=== PATIENT | female | born 1965 | race Native Hawaiian/Other Pacific Islander ===

== ENCOUNTER 2019-03-07 11:14 | Emergency (ER) | payer OTHER, MEDICAID ==
[~2019-03-07] VITALS: Ht 162.6 cm; Wt 114.8 kg
[2019-03-07 11:25] VITALS: BP 144/100
--- NOTE | 2019-03-07 11:45 | NUR ---
53 Y/O F PRESENTS TO ER FOR SHORTNESS OF BREATH X 1 WEEK. PER PT SHE JUST MOVED HERE AND DOES NOT HAVE A NEW PCP. PT RAN OUT OF ALBUTEROL 90MCG PRN INHALER. PT TAKING FLOVENT HFA 44MCG BID, WITHOUT ANY RELIEF. RESPIRATIONS ARE EVEN AND UNLABORED. O2 SATURATION 92-94% ON RA. PT PLACED ON 1L NC FOR COMFORT MEASURES. WHEEZING HEARD THROUGHOUT. PT HAS PRODUCTIVE COUGH WITH YELLOW PHLEGM. PT ALSO HAS HEADACHE 8/10 PAIN. PT ALSO HAS BILATERAL EDEMA TO TO ANKLES X 6 MONTHS. PT TAKING LASIX. PT PLACED IN HIGH FOWLERS POSITION, BED IN LOWEST POSITION, SIDE RAIL UP X1. ERMD MADE AWARE OF PT STATUS. ALLERGIES: NKA MED HX: ASTHMA, DM, HTN
--- NOTE | 2019-03-07 12:39 | NUR ---
Patient being evaluated by physician at bedside.
[2019-03-07] MEDS ORDERED: ALBUTEROL SULFATE/IPRATROPIU 3 ML SOL IH ONE (12:55)
[2019-03-07] MEDS ORDERED: predniSONE 20 MG TAB PO ONE (12:55)
--- NOTE | 2019-03-07 12:59 | NUR ---
XRAY AT BEDSIDE
--- NOTE | 2019-03-07 13:10 | NUR ---
RT AT BEDSIDE
[2019-03-07 13:38] LABS: BASOPHILS % (AUTO) 0.6 % (0.0-2.0); EOSINOPHILS # (AUTO) 0.2 K/uL (0-0.4); EOSINOPHILS % (AUTO) 5.1 % (0.0-4.0); HEMATOCRIT 43.9 % (36-48); HEMOGLOBIN 14.4 g/dL (12.0-16.0); LYMPHOCYTES # (AUTO) 1.6 K/uL (2.5-16.5); LYMPHOCYTES % (AUTO) 32.6 % (20.5-51.1); MEAN CORPUSCULAR HEMOGLOBIN 30 pg (27-31); MEAN CORPUSCULAR HGB CONC 33 g/dL (33-37); MEAN CORPUSCULAR VOLUME 92.3 fL (80-94); MONOCYTES # (AUTO) 0.3 K/uL (0.8-1.0); MONOCYTES % (AUTO) 5.9 % (1.7-9.3); NEUTROPHILS # (AUTO) 2.7 K/uL (1.8-7.7); NEUTROPHILS % (AUTO) 55.8 % (42.2-75.2); PLATELET COUNT (AUTO) 257 K/uL (140-450); RED BLOOD CELL COUNT(AUTO) 4.75 MIL/uL (4.20-5.40); RED CELL DISTRIBUTION WIDTH 13.7 % (11.6-13.7); WHITE BLOOD COUNT (AUTO) 4.8 K/uL (4.8-10.8)
[2019-03-07 13:51] LABS: ANION GAP 12.1 (8-16); CARBON DIOXIDE 28.9 mmol/L (21-32); CREATININE 0.7 mg/dL (0.6-1.3)
--- NOTE | 2019-03-07 14:11 | NUR ---
PT RESTING IN BED COMFORTABLY WITH EYES CLOSED, EASILY ARROUSABLE. VSS. WILL CONTINUE TO MONITOR.
--- NOTE | 2019-03-07 15:20 | NUR ---
Patient discharged with v/s stable. Written and verbal after care instructions given and explained. Pt encouraged to take the prednisone for the next few days. Pt encouraged to follow up with a new primary care provider within the [place] area. Patient alert, oriented and verbalized understanding of instructions. Ambulatory with steady gait. All questions addressed prior to discharge. ID band removed. Patient advised to follow up with PMD. Rx of albuterol 90 mcg, prednisone 20mg and flovent 110mcg was given. Patient educated on indication of medication including possible reaction and side effects. Opportunity to ask questions provided and answered.
[2019-03-07 15:24] VITALS: BP 169/112
== END 2019-03-07 15:20 | disposition home or self-care (01) ==
LOC: MED 11:14
DX: J45.901 Unspecified asthma with (acute) exacerbation (principal); E11.8 Type 2 diabetes mellitus with unspecified complications
CPT/HCPCS: 36415; 71045; 80048; 82948; 84484; 85025; 93005; 94640; 99284; J7512; J7620; Q0092

== ENCOUNTER 2019-06-03 08:29 | Emergency (ER) | payer OTHER, MEDICAID ==
[~2019-06-03] VITALS: Ht 162.6 cm; Wt 111.6 kg
[2019-06-03 08:45] VITALS: BP 204/132
--- NOTE | 2019-06-03 08:46 | NUR ---
Patient ambulated to bed 12. RN evaluating patient at bedside.
--- NOTE | 2019-06-03 08:54 | NUR ---
54 Y/O M C/C H/A SINCE THIS AM, PAIN 10/. HAS NOT TAKEN ANY RX AT HOME FOR PAIN. PER PT DX WITH HTN BUT DOES NOT HAVE PRESCRIBED RX FOR HTN. PT NKA. HX HTN,DM,ASTHMA. RX LASIX,METFORMIN,ALBUTEROL. NO N/V/D. LUNG SOUNDS WHEEZES BILATERAL. SIDE RAIL X1.
--- NOTE | 2019-06-03 09:00 | NUR ---
Patient taken to CT scan via gurney by [employer].
[2019-06-03] MEDS ORDERED: PRON INH (09:01)
[2019-06-03] MEDS ORDERED: METF500T PO (09:01)
--- NOTE | 2019-06-03 09:01 | NUR ---
NEURO ASSESSMENT WDL.
--- NOTE | 2019-06-03 09:09 | NUR ---
ua sent to lab
--- NOTE | 2019-06-03 09:10 | NUR ---
pt back from ct [id number] at this time
[2019-06-03] MEDS ORDERED: KETOROLAC 60 MG/2 ML VIAL IM ONE (10:10)
--- NOTE | 2019-06-03 11:21 | NUR ---
DR GOULD AT BEDSIDE
[2019-06-03 11:35] VITALS: BP 150/103
== END 2019-06-03 11:35 | disposition home or self-care (01) ==
LOC: MED 08:29
DX: R51 Headache (principal); J45.909 Unspecified asthma, uncomplicated; E11.9 Type 2 diabetes mellitus without complications; I10 Essential (primary) hypertension; Z79.84 Long term (current) use of oral hypoglycemic drugs; Z79.899 Other long term (current) drug therapy; Z98.890 Other specified postprocedural states
CPT/HCPCS: 70450; 81002; 81025; 82948; 93005; 96372; 99284; J1885